=== PATIENT | female | born 1985 | race Caucasian/White ===

== ENCOUNTER 2018-01-21 16:38 | Emergency (ER) | payer BC ==
--- NOTE | 2018-01-21 17:10 | Emergency Department Record ---
History of Present Illness - General Chief complaint: Pain Stated complaint: LT SHOULDER ARM PAIN/GENERAL NOT FEELING RIGHT Time Seen by Provider: 01/21/18 17:09 Source: Patient Mode of Arrival: Ambulatory Limitations: No limitations - History of Present Illness Initial comments: 33 yo female presents with left shoulder pain today and a vague feeling of "not feeling right". She is unable to specifically states otherwise what is not right. No chest pain, no shortness of breath, no dizziness, no palpitations, no cough, no fever, no nausea, no vomiting, no diarrhea, no abdominal pain. No leg swelling. No dysuria. She has asthma but no recent symptoms. No HTN, elevated cholesterol, DM. No family history of CAD or early deaths. The left arm pain is reproduced with raising the arm. No weakness. MD Complaint: Extremity pain, Joint pain -: Hour(s) Location: Left, Shoulder -: Yes Myalgia Radiation: Proximal Quality: Aching Consistency: Constant Improves with: Immobilization Worsens with: Palpation, Weight bearing Associated Symptoms: Arthralgias, Myalgias - Related Data Home Medications Medication Instructions Recorded Confirmed Last Taken Albuterol Sulfate [Proair Hfa] 1 inh INH DAILY 01/21/18 01/21/18 Unknown Mometasone/Formoterol [Dulera 100 1 inh INH ASDIR 01/21/18 01/21/18 Unknown Mcg/5 Mcg Inhaler] Previous Rx's Medication Instructions Recorded Nitrofurantoin Monohyd/M-Cryst 100 mg PO BID #14 capsule 01/21/18 [Macrobid 100 mg Capsule] Allergies Allergy/AdvReac Type Severity Reaction Status Date / Time Penicillins Allergy HIVES Verified 01/21/18 17:31 Review of Systems Constitutional: Denies: Chills, Fever, Malaise, Weakness Eyes: Denies: Eye discharge ENT: Denies: Congestion, Throat pain Respiratory: Denies: Cough Cardiovascular: Denies: Chest pain, Palpitations, Syncope Endocrine: Denies: Fatigue Gastrointestinal: Denies: Abdominal pain, Diarrhea, Nausea, Vomiting Genitourinary: Denies: Dysuria, Urgency Musculoskeletal: Reports: As per HPI, Arthralgia Skin: Denies: Bruising, Change in color, Rash Neurological: Denies: Confusion, Numbness, Weakness Psychiatric: Denies: Anxiety Hematological/Lymphatic: Denies: Blood Clots, Easy bleeding, Easy bruising Physical Exam - General General Appearance: Alert, Oriented x3, Cooperative, No acute distress Limitations: No limitations - Head Head exam: Atraumatic, Normal inspection - Eye Eye exam: Normal appearance, PERRL. negative: Conjunctival injection, Scleral icterus - ENT ENT exam: Normal exam, Mucous membranes moist Ear exam: Normal external inspection Nasal Exam: Normal inspection Mouth exam: Normal external inspection - Neck Neck exam: Normal inspection, Full ROM. negative: Tenderness - Respiratory Respiratory exam: Normal lung sounds bilaterally. negative: Accessory muscle use, Respiratory distress, Rhonchi, Stridor, Wheezes - Cardiovascular Cardiovascular Exam: Regular rate, Normal rhythm, Normal heart sounds. negative : Diastolic murmur, Systolic murmur Peripheral Pulses: 2+: Radial (R), Radial (L) - GI/Abdominal GI/Abdominal exam: Soft. negative: Tenderness - Rectal Rectal exam: Deferred - exam: Deferred - Extremities Extremities exam: Normal inspection, Full ROM, Normal capillary refill, Tenderness. negative: Calf tenderness, Joint swelling, Pedal edema Image of Full Body: 1 - tender shoulder anterior, no swelling, pain with abduction and pain against forced adduction. 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 Denies: CVA tenderness (R), CVA tenderness (L) - Neurological Neurological exam: Alert, Oriented X3 - Psychiatric Psychiatric exam: Normal affect, Normal mood. negative: Agitated, Anxious - Skin Skin exam: Dry, Intact, Normal color, Warm Course - Reevaluation(s) Reevaluation #1: Vitals reviewed No acute changes 01/21/18 17:48 01/21/18 17:52 EKG 1738 NSR Rate is 64 Intervals normal Donner normal ST normal Normal EKG 01/21/18 18:57 01/21/18 19:27 The UA is consistent with UTI Macrobid provided Medical Decision Making - Lab Data Result diagrams: 01/21/18 17:55 01/21/18 17:55 Disposition Disposition: Discharge Clinical Impression: Left arm pain, Urinary tract infection Disposition: Home, Self-Care Condition: (1) Good Instructions: Arm Pain (ED), Urinary Tract Infection in Women (ED) Additional Instructions: Motrin for the discomfort Return if you have any shortness of breath, fever, cough, chest pain, dizziness or concerns Call your doctor for close followup of the symptoms There is a culture of the urine that will report in 2-3 days Take the antibiotic as directed Prescriptions: Nitrofurantoin Monohyd/M-Cryst [Macrobid 100 mg Capsule] 100 mg PO BID #14 capsule Forms: Patient Portal Access Time of Disposition: 18:57 Quality - Quality Measures Quality Measures: N/A - Blood Pressure Screening Does Patient Have Any of the Following: No Blood Pressure Classification: Pre-Hypertensive BP Reading Systolic Measurement: 122 Diastolic Measurement: 89 Screening for High Blood Pressure: < Pre-Hypertensive BP, F/U Documented > [ [id number]] Pre-Hypertensive Follow-up Interventions: Referral to alternative/primary care provider.
[2018-01-21 18:12] LABS: BASO % 0.3 % (0-6); EOS % 2.7 % (0-6); GRAN % 64.2 % (47-80); HEMATOCRIT 43.6 % (35.0-47.0); HEMOGLOBIN 15.1 gm/dl (11.6-16.0); LYMPH % 25.6 % (16-45); MEAN CORPUSCULAR HEMOGLOBIN 30.1 pg (27-33); MEAN CORPUSCULAR HGB CONC 34.6 g/dl (32-36); MEAN PLATELET VOLUME 10.5 fl (7.4-10.4); MONO % 7.2 % (0-9); PLATELET COUNT 228 K/uL (130-400); RED BLOOD COUNT 5.01 M/uL (3.80-5.40); RED CELL DISTRIBUTION WIDTH 12.8 % (11.5-14.5); WHITE BLOOD COUNT W/O DIFF 10.2 K/uL (4.2-12.2)
[2018-01-21 18:18] LABS: HCG,QUALITATIVE URINE NEGATIVE (NEGATIVE)
[2018-01-21 18:21] LABS: BLOOD UREA NITROGEN 8 mg/dL (6-20)
[2018-01-21 18:22] LABS: CREATININE 0.8 mg/dL (0.5-0.9); EST GLOMERULAR FILTRATION RATE > 60 mL/min; TOTAL PROTEIN 7.6 g/dL (6.6-8.7)
[2018-01-21 18:24] LABS: GLUCOSE,RANDOM 83 mg/dL (74-109)
[2018-01-21 18:27] LABS: ALB/GLOB RATIO 1.5 (1.1-1.8); ALBUMIN 4.5 g/dL (4.0-5.0); ALKALINE PHOSPHATASE 84 U/L (35-104); ALT/SGPT 23 U/L (<33); AST/SGOT 15 U/L (10.0-35.0)
[2018-01-21 18:37] LABS: THYROID STIMULATING HORMONE 1.13 uIU/mL (0.270-4.20)
[2018-01-21 19:07] LABS: URINE APPEARANCE SL CLOUDY; URINE BILIRUBIN NEGATIVE (NEGATIVE); URINE BLOOD MODERATE (NEGATIVE); URINE COLOR YELLOW; URINE GLUCOSE (UA) NEGATIVE (NEGATIVE); URINE KETONE NEGATIVE (NEGATIVE); URINE LEUKOCYTE ESTERASE SMALL (NEGATIVE); URINE NITRITE NEGATIVE (NEGATIVE); URINE PROTEIN NEGATIVE (NEGATIVE); URINE UROBILINOGEN 0.2 E.U./dL (0.20 - 1.00)
[2018-01-21 19:16] LABS: URINE BACTERIA 2+; URINE RBC 0 - 2 (NONE SEEN)
[2018-01-21] MEDS ORDERED: NITROFURANTOIN MONO 100 MG CAPSULE PO ONE (19:26)
== END 2018-01-21 19:43 | disposition home or self-care (01) ==
LOC: ER 16:38
DX: N39.0 Urinary tract infection, site not specified (principal); M25.512 Pain in left shoulder; R11.0 Nausea; F17.210 Nicotine dependence, cigarettes, uncomplicated
CPT/HCPCS: 80053; 81001; 81025; 84443; 85025; 93005; 93010; 99284